=== PATIENT | male | born 1990 | race African-American/Black ===

== ENCOUNTER 2022-07-24 03:08 | Emergency (ER) | payer MEDICAID ==
[~2022-07-24] VITALS: Ht 182.9 cm; Wt 90.0 kg
[2022-07-24] MEDS ORDERED: ACETAMINOPHEN 325MG TABLET PO STA (03:21)
[2022-07-24] MEDS ORDERED: SODIUM CHLORIDE 0.9% 1,000 ML IV ONE (03:30)
[2022-07-24 03:50] LABS: HEMATOCRIT. 52.6 % (42.0-52.0); HEMOGLOBIN. 17.7 g/dL (14.0-18.0); MEAN CORPUSCULAR HEMOGLOBIN 31.2 pg (28.0-32.0); MEAN CORPUSCULAR VOLUME 92.5 fL (80.0-94.0); MEAN PLATELET VOLUME 6.5 fl (7.4-10.4); PLATELET 311 x1000/uL (130-400); RED BLOOD CELL COUNT 5.69 mill/uL (4.7-6.1); RED CELL DISTRIBUTION WIDTH 13.3 % (11.6-14.6)
[2022-07-24 03:57] LABS: CHLORIDE 106 mEq/L (98-107)
[2022-07-24 04:06] LABS: ETHANOL BLOOD < 10 mg/dL
[2022-07-24] MEDS ORDERED: AZITHROMYCIN 500MG/250ML 250 ML IV ONE (04:15)
[2022-07-24] MEDS ORDERED: CEFTRIAXONE 1 G PREMIX 50 ML IV ONE (04:15)
[2022-07-24 05:00] VITALS: BP 129/71
[2022-07-24 05:04] LABS: BG BASE EXCESS 1.8 mmol/L (-2.0-2.0); BG CARBOXYHEMOGLOBIN 1.9 % (0.5-1.5); BG DEOXYHEMOGLOBIN 4.3 % (0.0-5.0); BG HCO3 ACT 26.8 mmol/L (22.0-26.0); BG METHEMOGLOBIN 0.4 % (0.0-1.5); BG OXYGEN SATURATION 95.6 % (92.0-98.5); BG OXYHEMOGLOBIN 93.4 % (94.0-97.0); BG PCO2 43.4 mmHg (35.0-45.0); BG PH 7.409 (7.350-7.450); BG PO2 78.9 mmHg (75.0-100.0); BG TOTAL HEMOGLOBIN 17.6 g/dL (12.0-18.0); BG VENT MODE ROOM AIR
[2022-07-24 05:22] LABS: PLATELET ESTIMATE NORMAL
== END 2022-07-24 08:34 | disposition left against medical advice (07) ==
LOC: ER 03:08 → CANBEDREQ 07:56 → ER 08:34
DX: A41.9 Sepsis, unspecified organism (principal); J18.9 Pneumonia, unspecified organism; G93.40 Encephalopathy, unspecified; R65.21 Severe sepsis with septic shock; R09.02 Hypoxemia; F16.10 Hallucinogen abuse, uncomplicated; Z20.822 Contact with and (suspected) exposure to COVID-19; R00.0 Tachycardia, unspecified; E87.2 Acidosis; R45.1 Restlessness and agitation; F12.10 Cannabis abuse, uncomplicated
CPT/HCPCS: 36415; 36600; 71045; 80053; 80320; 82375; 82805; 83605; 85025; 87040; 87426; 93005; 96361; 96365; 96368; 99291; C9803; J0456; J0696; J7030; G0480